=== PATIENT | female | born 1985 | race African-American/Black ===

== ENCOUNTER 2019-02-18 21:58 | Inpatient (IN) | payer MEDICAID ==
[~2019-02-18] VITALS: Ht 167.6 cm; Wt 139.7 kg
[2019-02-18 22:14] VITALS: BP 119/57
[2019-02-18] MEDS ORDERED: LACTATED RINGERS 500 ML IV ONE (22:25)
[2019-02-18] MEDS ORDERED: AMPICILLIN 2,000 MG in NACL 0.9% MINI-BAG PLUS 100 ML IV SCH (22:25)
[2019-02-18] MEDS ORDERED: OXYTOCIN 10 UNITS/ML VIAL IM SCH (22:25)
[2019-02-18] MEDS ORDERED: OXYTOCIN 20 UNITS in LACTATED RINGERS 1,000 ML IV SCH (22:30)
[2019-02-18] MEDS ORDERED: FERR-252 PO (22:32)
[2019-02-18] MEDS ORDERED: PREN-380 PO (22:32)
[2019-02-18 22:54] LABS: BASOPHILS # (AUTO) 0.1 K/uL (0.00-0.22); BASOPHILS % (AUTO) 0.8 % (0.0-2.0); EOSINOPHILS % (AUTO) 0.3 % (0.0-4.0); HEMATOCRIT 38.9 % (36-48); HEMOGLOBIN 12.8 g/dL (12.0-16.0); LYMPHOCYTES # (AUTO) 1.8 K/uL (2.5-16.5); LYMPHOCYTES % (AUTO) 12.1 % (20.5-51.1); MEAN CORPUSCULAR HEMOGLOBIN 29 pg (27-31); MEAN CORPUSCULAR HGB CONC 33 g/dL (33-37); MEAN CORPUSCULAR VOLUME 87.7 fL (80-94); MONOCYTES # (AUTO) 0.8 K/uL (0.8-1.0); NEUTROPHILS # (AUTO) 12.2 K/uL (1.8-7.7); NEUTROPHILS % (AUTO) 81.8 % (42.2-75.2); PLATELET COUNT (AUTO) 224 K/uL (140-450); RED BLOOD CELL COUNT(AUTO) 4.44 MIL/uL (4.20-5.40); RED CELL DISTRIBUTION WIDTH 14.4 % (11.6-13.7); WHITE BLOOD COUNT (AUTO) 14.9 K/uL (4.8-10.8)
[2019-02-18] MEDS ORDERED: PROMETHAZINE 25 MG/ML VIAL ONE (22:58)
[2019-02-18] MEDS ORDERED: NALBUPHINE 10 MG/ML AMP ONE (22:58)
[2019-02-18 23:06] LABS: ANION GAP 16.4 (8-16); CARBON DIOXIDE 23.4 mmol/L (21-32); CREATININE 0.9 mg/dL (0.6-1.3); POTASSIUM 3.8 mmol/L (3.5-5.1)
[2019-02-18 23:12] LABS: ALBUMIN 2.8 g/dL (3.4-5.0); TOTAL BILIRUBIN 0.2 mg/dL (0.0-1.0)
[2019-02-18] MEDS ORDERED: AMPICILLIN 2,000 MG VIAL ONE (23:15)
[2019-02-18] MEDS: NALBUPHINE 10 MG/ML AMP IVP PRN (23:51)
[2019-02-18] MEDS: PROMETHAZINE 25 MG/ML VIAL IVP PRN (23:51)
[2019-02-19] MEDS ORDERED: AMPICILLIN 1,000 MG VIAL ONE ×4 (00:30→15:22)
[2019-02-19] MEDS: LACTATED RINGERS 1,000 ML IV SCH ×2 (03:00→07:09)
[2019-02-19] MEDS: AMPICILLIN 1,000 MG in NACL 0.9% MINI-BAG PLUS 50 ML IV SCH ×4 (03:15→15:23)
[2019-02-19] MEDS ORDERED: NALBUPHINE 10 MG/ML AMP ONE (03:23)
[2019-02-19] MEDS ORDERED: PROMETHAZINE 25 MG/ML VIAL ONE (03:23)
[2019-02-19] MEDS: NALBUPHINE 10 MG/ML AMP IVP PRN (03:39)
[2019-02-19] MEDS: PROMETHAZINE 25 MG/ML VIAL IVP PRN (03:40)
[2019-02-19 04:04] LABS: APPEARANCE,URINE SL CLOUDY (CLEAR); BILIRUBIN,URINE NEGATIVE (NEGATIVE); BLOOD, URINE 3+ (NEGATIVE); COLOR,URINE DARK YELLOW (YELLOW); LEUKOCYTE ESTERASE ,URINE NEGATIVE (NEGATIVE); NITRITE, URINE NEGATIVE (NEGATIVE); UGLUCOSE NEGATIVE (NEGATIVE)
[2019-02-19 04:14] LABS: BARBITURATE, URINE NEG. ng/ml (NEG <=200); BENZODIAZEPINE, URINE NEG. ng/mL (NEG <=200); CANNABINOID, URINE NEG. ng/mL (NEG <=50); COCAINE, URINE NEG. ng/mL (NEG <=300); OPIATE, URINE NEG. ng/mL (NEG <=2000); PHENCYCLIDINE SCREEN,URINE NEG. ng/mL (NEG <=25)
[2019-02-19 04:26] LABS: RBC,URINE 11-20 (MOD) /HPF (0-5)
[2019-02-19] MEDS ORDERED: OXYTOCIN 10 UNITS/ML VIAL ONE (07:56)
[2019-02-19] MEDS ORDERED: LIDOCAINE 1% 500 MG/50 ML VIAL ONE (07:57)
[2019-02-19] MEDS ORDERED: OXYTOCIN 20 UNITS/LR PREMIX 1,000 ML IV ONE ×2 (08:59→17:52)
[2019-02-19] MEDS ORDERED: BUPIVACAINE 0.125%/NS PREMIX 0 ML ONE (09:49)
[2019-02-19] MEDS ORDERED: MORPHINE PRES FREE 10 MG/10 ML AMP IV ONE (10:13)
[2019-02-19] MEDS ORDERED: fentaNYL 0.05 MG/ML VIAL ONE (10:13)
[2019-02-19] MEDS ORDERED: BUPIVACAINE MPF 0.25% 10 ML VIAL INJ ONE (10:13)
[2019-02-19] MEDS ORDERED: ROPIVACAINE 0.2%/NS PREMIX 100 ML EPI ONE (10:31)
[2019-02-19] MEDS ORDERED: OXYTOCIN 20 UNITS in LACTATED RINGERS 1,000 ML IV SCH (16:33)
[2019-02-19] MEDS ORDERED: ACETAMINOPHEN 325 MG TAB PO PRN (16:35)
[2019-02-19] MEDS ORDERED: DOCUSATE SODIUM 100 MG GELCAP PO PRN (16:35)
[2019-02-19] MEDS ORDERED: BISACODYL 5 MG TABEC PO PRN (16:35)
[2019-02-19] MEDS ORDERED: MEASLES, MUMPS, AND RUBELLA 1 VIAL SQVAC PRN (16:35)
[2019-02-19] MEDS ORDERED: IBUPROFEN 600 MG TAB PO PRN (16:35)
--- NOTE | 2019-02-20 06:26 | NUR ---
PATIENT HAS BEEN SCREENED AND CATEGORIZED LOW NUTRITION RISK. PATIENT WILL BE SEEN WITHIN 7 DAYS OF ADMISSION. 02/24/19 PANCHO WARNER MS, RDN
[2019-02-20 08:31] LABS: BASOPHILS # (AUTO) 0.1 K/uL (0.00-0.22); BASOPHILS % (AUTO) 0.5 % (0.0-2.0); EOSINOPHILS % (AUTO) 0.2 % (0.0-4.0); HEMATOCRIT 36.4 % (36-48); HEMOGLOBIN 11.9 g/dL (12.0-16.0); LYMPHOCYTES # (AUTO) 2.7 K/uL (2.5-16.5); LYMPHOCYTES % (AUTO) 18.1 % (20.5-51.1); MEAN CORPUSCULAR HEMOGLOBIN 29 pg (27-31); MEAN CORPUSCULAR HGB CONC 33 g/dL (33-37); MEAN CORPUSCULAR VOLUME 88.8 fL (80-94); MONOCYTES # (AUTO) 0.7 K/uL (0.8-1.0); MONOCYTES % (AUTO) 4.9 % (1.7-9.3); NEUTROPHILS # (AUTO) 11.5 K/uL (1.8-7.7); NEUTROPHILS % (AUTO) 76.3 % (42.2-75.2); PLATELET COUNT (AUTO) 202 K/uL (140-450); RED CELL DISTRIBUTION WIDTH 14.9 % (11.6-13.7)
== END 2019-02-21 14:55 | disposition home or self-care (01) | DRG 560 ==
LOC: MFCC 21:58 → OBSVTOIN 21:58 → MFCC 02-19 20:00
PROVIDERS: ADMIT Obstetrics & Gynecology; ATTEND Obstetrics & Gynecology
PROC: 10E0XZZ Delivery of Products of Conception, External Approach (ICD-10-PCS; principal; 2019-02-19)
PROC: 3E0R3BZ Introduction of Anesthetic Agent into Spinal Canal, Percutaneous Approach (ICD-10-PCS; 2019-02-19)
PROC: 00HU33Z Insertion of Infusion Device into Spinal Canal, Percutaneous Approach (ICD-10-PCS; 2019-02-19)
DX: O99.214 Obesity complicating childbirth (principal); E66.9 Obesity, unspecified; Z37.0 Single live birth; Z3A.39 39 weeks gestation of pregnancy
CPT/HCPCS: 36415; 59409; 76805; 80053; 80305; 81001; 85025; 86592; 86762; 86886; 86900; 86901; 87086; 87340; 87653-90; J0290; J2001; J2270; J2300; J2550; J2590; J2795; J3010; J3490; J7042; J7120; Q0092